=== PATIENT | male | born 1985 | race Two or more races ===

== ENCOUNTER → 2017-11-02 | Outpatient (CLI) | payer OTHER | END | disposition home or self-care (01) | LOC: LAB 15:32 | DX: Z11.3 Encounter for screening for infections with a predominantly sexual mode of transmission (principal) ==

== ENCOUNTER 2018-02-14 15:00 | Outpatient (CLI) | payer OTHER | END 2018-02-14 15:12 | disposition home or self-care (01) | LOC: SONOGRAMA 15:00 | DX: M25.521 Pain in right elbow (principal) ==

== ENCOUNTER 2018-02-24 07:33 | Outpatient (CLI) | payer OTHER | END 2018-02-24 07:43 | disposition home or self-care (01) | LOC: LAB 07:33 | DX: R03.0 Elevated blood-pressure reading, without diagnosis of hypertension (principal); Z13.1 Encounter for screening for diabetes mellitus ==

== ENCOUNTER 2018-08-17 16:06 | Outpatient (CLI) | payer OTHER | END 2018-08-17 16:22 | disposition home or self-care (01) | LOC: SONOGRAMA 16:06 | DX: I86.1 Scrotal varices (principal) ==

== ENCOUNTER 2018-12-11 15:58 | Outpatient (CLI) | payer OTHER | END 2018-12-11 19:00 | disposition home or self-care (01) | LOC: LAB 15:58 → CERTIFICAD 15:58 | DX: Z02.79 Encounter for issue of other medical certificate (principal) ==

== ENCOUNTER 2020-03-05 13:00 | Outpatient (CLI) | payer OTHER | END 2020-03-05 13:55 | disposition home or self-care (01) | LOC: PPH VACUNA 13:00 | DX: Z23 Encounter for immunization (principal) ==

== ENCOUNTER → 2021-01-07 | Outpatient (CLI) | payer OTHER | END | disposition home or self-care (01) | LOC: LAB 14:40 | PROVIDERS: ATTEND Emergency Medicine Pediatric Emergency Medicine | DX: Z20.818 Contact with and (suspected) exposure to other bacterial communicable diseases (principal) ==

== ENCOUNTER → 2021-03-09 | Outpatient (CLI) | payer OTHER | END | disposition home or self-care (01) | LOC: PPH VACUNA 09:00 | PROVIDERS: ATTEND Emergency Medicine Pediatric Emergency Medicine | DX: Z23 Encounter for immunization (principal) ==

== ENCOUNTER 2021-03-18 17:10 | Outpatient (CLI) | payer OTHER | END 2021-03-18 17:15 | disposition home or self-care (01) | LOC: PPH VACUNA 17:10 | PROVIDERS: ATTEND Emergency Medicine Pediatric Emergency Medicine | DX: Z23 Encounter for immunization (principal) ==

== ENCOUNTER 2022-01-12 15:05 | Outpatient (CLI) | payer OTHER | END 2022-01-12 15:15 | disposition home or self-care (01) | LOC: MRI 15:05 → RAD 15:05 | DX: M99.01 Segmental and somatic dysfunction of cervical region (principal); M54.2 Cervicalgia; R10.9 Unspecified abdominal pain | CPT/HCPCS: 72141 ==

== ENCOUNTER 2022-04-05 15:00 | Outpatient (CLI) | payer OTHER | END 2022-04-05 15:05 | disposition home or self-care (01) | LOC: PPH VACUNA 15:00 | PROVIDERS: ATTEND Emergency Medicine Pediatric Emergency Medicine | DX: Z23 Encounter for immunization (principal) ==

== ENCOUNTER 2022-05-27 11:56 | Outpatient (CLI) | payer OTHER | END 2022-05-27 12:01 | disposition home or self-care (01) | LOC: RAD 11:56 | PROVIDERS: ATTEND Radiology Diagnostic Radiology | DX: M54.2 Cervicalgia (principal) ==

== ENCOUNTER 2023-01-30 21:54 | Emergency (ER) | payer OTHER ==
[~2023-01-30] VITALS: Ht 172.7 cm; Wt 117.9 kg
== END 2023-01-30 23:03 | disposition home or self-care (01) ==
LOC: ER 21:54
DX: M54.30 Sciatica, unspecified side (principal)

== ENCOUNTER 2023-04-13 21:59 | Emergency (ER) | payer OTHER ==
[~2023-04-13] VITALS: Ht 172.7 cm; Wt 113.4 kg
[2023-04-13 23:16] LABS: HEMATOCRIT 43.8 % (39.0-48.0); HEMOGLOBIN 15.3 g/dL (13-16.00); MEAN CELL VOLUME 88.3 fL (80.0-100.00); MEAN CORPUSCULAR HEMOGLOBIN 30.8 pg (27.00-32.0); MEAN CORPUSCULAR HGB CONC 34.9 g/dl (32.0-36.0); PLATELET COUNT 247 K/uL (150-450); RED BLOOD COUNT 4.96 M/uL (4.00-6.00); RED CELL DISTRIBUTION WIDTH 13.2 % (11.5-14.5)
== END 2023-04-14 00:14 | disposition home or self-care (01) ==
LOC: ER 21:59
DX: J06.9 Acute upper respiratory infection, unspecified (principal); Z20.822 Contact with and (suspected) exposure to COVID-19

== ENCOUNTER 2023-04-18 02:00 | Outpatient (CLI) | payer OTHER | END 2023-04-18 02:10 | disposition home or self-care (01) | LOC: PPH VACUNA 02:00 | PROVIDERS: ATTEND Emergency Medicine Pediatric Emergency Medicine | DX: Z23 Encounter for immunization (principal) | CPT/HCPCS: 90686; G0008 ==

== ENCOUNTER 2023-12-13 15:02 | Outpatient (CLI) | payer OTHER | END 2023-12-13 15:08 | disposition home or self-care (01) | LOC: RAD 15:02 | PROVIDERS: ATTEND Internal Medicine Cardiovascular Disease | DX: I10 Essential (primary) hypertension (principal) ==

== ENCOUNTER 2024-03-21 15:13 | Outpatient (CLI) | payer OTHER | END 2024-03-21 15:16 | disposition home or self-care (01) | LOC: SONOGRAMA 15:13 | PROVIDERS: ATTEND Internal Medicine Cardiovascular Disease | DX: E03.8 Other specified hypothyroidism (principal) ==

== ENCOUNTER 2024-04-17 15:00 | Outpatient (CLI) | payer OTHER | END 2024-04-17 15:10 | disposition home or self-care (01) | LOC: PPH VACUNA 15:00 | PROVIDERS: ATTEND Emergency Medicine Pediatric Emergency Medicine | DX: Z23 Encounter for immunization (principal) ==

== ENCOUNTER 2024-05-02 09:39 | Outpatient (CLI) | payer OTHER | END 2024-05-02 09:43 | disposition home or self-care (01) | LOC: SONOGRAMA 09:39 | PROVIDERS: ATTEND Pathology Anatomic Pathology & Clinical Pathology | DX: D34 Benign neoplasm of thyroid gland (principal); E04.1 Nontoxic single thyroid nodule ==

== ENCOUNTER 2025-01-17 16:49 | Outpatient (CLI) | payer OTHER | END 2025-01-17 16:55 | disposition home or self-care (01) | LOC: RAD 16:49 | PROVIDERS: ATTEND Internal Medicine Cardiovascular Disease | DX: M25.561 Pain in right knee (principal) ==